=== PATIENT | male | born 1955 | race Two or more races ===

== ENCOUNTER 2023-07-29 06:53 | Inpatient (IN) | payer MEDICARE, MEDICAID ==
[~2023-07-29] VITALS: Ht 177.8 cm; Wt 113.5 kg
[2023-07-29] MEDS ORDERED: SODIUM CHLORIDE 0.9% 500 ML IV ONE (07:30)
[2023-07-29] MEDS ORDERED: MORPHINE SULFATE INJ 2 MG/ml SYRG IM ONE (07:30)
[2023-07-29] MEDS ORDERED: PROCHLORPERAZINE EDISYLATE 5 MG/ML 2ML VIAL IM ONE (07:30)
[2023-07-29 08:01] LABS: INR 1.06 (0.9-1.15); Partial Thromboplastin Time 27.5 SEC (24.5-34.5); Prothrombin Time 11.1 sec (9.3-11.8)
[2023-07-29 08:18] LABS: Basophils # (auto) 0 10 ^3/uL (0-0.2); Basophils % (auto) 0.5 % (0.0-2.0); Eosinophils # (auto) 0.1 10 ^3/uL (0-0.8); Eosinophils % (auto) 0.7 % (0.0-7.0); Hematocrit 43.6 % (41.0-53.0); Hemoglobin 14.9 g/dL (13.5-17.5); Lymphocytes # (auto) 0.7 10 ^3/uL (0.4-5.4); Mean Corpuscular Hemoglobin 28.2 pg (28.0-32.0); Mean Corpuscular Hgb Conc. 34.2 g/dL (32.0-36.0); Mean Corpuscular Volume 82.5 fL (80.0-100.0); Monocytes # (auto) 0.4 10 ^3/uL (0-1.3); Monocytes % (auto) 4.4 % (0.0-12.0); Neutrophils % (auto) 85.4 % (37.0-80.0); Nucleated Red Blood Cells % 0.1 %; Red Blood Cells 5.29 10^6/uL (4.5-5.90); Red Cell Distribution Width 14.2 % (11.8-14.3); White Blood Cell 8.2 10^3/uL (4.4-10.8)
[2023-07-29 09:51] VITALS: PULSE 68; RESP 18; O2SAT 97
[2023-07-29] MEDS ORDERED: MORPHINE SULFATE 4 MG/ML SYR/VIAL IV ONE (10:00)
[2023-07-29] MEDS ORDERED: HALOPERIDOL LACTATE 5 MG/ML INJ VIAL IM ONE (10:00)
[2023-07-29] MEDS ORDERED: diphenhdrAMINE HCL 50 MG/1 ML VL IV ONE (10:45)
[2023-07-29 10:48] LABS: Alanine Aminotransferase 18 U/L (7-40); Albumin 4.4 g/dL (3.2-4.8); Alkaline Phosphatase 96 U/L (46-116); Anion Gap 12 (5-15); Aspartate Aminotransferase 17 U/L (13-40); BUN/Creatinine Ratio 15.5 (10.0-20.0); Blood Urea Nitrogen 13 mg/dL (9-23); Calcium 9.2 mg/dL (8.7-10.4); Carbon Dioxide 24 mmol/L (20-30); Chloride 107 mmol/L (98-107); Glucose 145 mg/dL (74-106); Lipase 33 U/L (12-53); Potassium 3.5 mmol/L (3.5-5.1); Sodium 143 mmol/L (136-145)
[2023-07-29 10:49] LABS: Bilirubin, Total 0.8 mg/dL (0.2-1.0); Total Protein 6.6 g/dL (5.7-8.2)
[2023-07-29] MEDS ORDERED: SODIUM CHLORIDE 0.9% 1,000 ML IV ONE (11:15)
[2023-07-29] MEDS ORDERED: PANTOPRAZOLE 40 MG/10 ML VIAL INJ IV ONE (12:00)
[2023-07-29 12:25] LABS: Urine Bacteria NONE SEEN /hpf (None Seen); Urine Blood Negative /uL (Negative); Urine Clarity Clear (Clear); Urine Color Yellow (Yellow); Urine Mucus FEW (None Seen); Urine Protein, UAD TRACE (Negative); Urine Specific Gravity 1.018 (1.001-1.035); Urine Urobilinogen Normal (Negative); Urine WBC 1 /hpf (0 - 3); Urine pH 6.5 (5.0-8.0)
[2023-07-29] MEDS: SODIUM CHLORIDE 0.9% 1,000 ML IV SCH (12:38)
[2023-07-29] MEDS: hydrALAZINE HCL 20 MG/ML VL IV PRN (13:43)
[2023-07-29 14:00] LABS: Triglycerides 105 mg/dL (< 150)
[2023-07-29 14:01] LABS: LDL Cholesterol 115 mg/dL (< 100)
[2023-07-29 14:02] LABS: Cholesterol 164 mg/dL (< 200); HDL Cholesterol 36 mg/dL (40-59)
[2023-07-29 14:15] VITALS: BP 140/90; PULSE 97; RESP 17; TEMP 98
[2023-07-29] MEDS ORDERED: LOSA50TA46 PO (16:16)
[2023-07-29] MEDS ORDERED: CHOL20007 PO (16:17)
[2023-07-29] MEDS ORDERED: TAMS-35 PO (16:17)
[2023-07-29] MEDS ORDERED: OMEP20TA85 PO (16:17)
[2023-07-29] MEDS ORDERED: MULT-1018 PO (16:17)
[2023-07-29] MEDS ORDERED: SUCR1TAB22 PO (16:17)
[2023-07-29] MEDS ORDERED: FERR-7 PO (16:17)
[2023-07-29] MEDS ORDERED: SIMV20TA20 PO (16:17)
[2023-07-29] MEDS ORDERED: HYDR-4296 PO (16:17)
[2023-07-29] MEDS ORDERED: GASTROGRAFIN 120 ML SOL ONE (16:23)
[2023-07-29 17:00] VITALS: BP 126/93; PULSE 112; RESP 18; TEMP 98; O2SAT 95
[2023-07-29] MEDS ORDERED: LABETALOL HCL 5 MG/ML 4ML SYRINGE IV PRN (19:15)
[2023-07-29 20:00] VITALS: PULSE 100; RESP 18; O2SAT 96
[2023-07-29 22:00] VITALS: BP 140/88; PULSE 116; RESP 20; TEMP 97.9; O2SAT 96
[2023-07-30] VITALS (8 sets, daily range): BP systolic 138–158; BP diastolic 84–102; PULSE 80–84; RESP 16–18; TEMP 98–98.9; O2SAT 92–96
[2023-07-30 06:20] LABS: Basophils # (auto) 0 10 ^3/uL (0-0.2); Basophils % (auto) 0.2 % (0.0-2.0); Eosinophils # (auto) 0 10 ^3/uL (0-0.8); Eosinophils % (auto) 0.1 % (0.0-7.0); Hematocrit 47.7 % (41.0-53.0); Hemoglobin 16.1 g/dL (13.5-17.5); Lymphocytes # (auto) 0.7 10 ^3/uL (0.4-5.4); Lymphocytes % (auto) 8.5 % (10.0-50.0); Mean Corpuscular Hemoglobin 28.4 pg (28.0-32.0); Mean Corpuscular Hgb Conc. 33.7 g/dL (32.0-36.0); Mean Corpuscular Volume 84.1 fL (80.0-100.0); Monocytes # (auto) 0.6 10 ^3/uL (0-1.3); Monocytes % (auto) 7.9 % (0.0-12.0); Neutrophils # (auto) 6.6 10 ^3/uL (1.6-8.6); Neutrophils % (auto) 83.3 % (37.0-80.0); Nucleated Red Blood Cells % 0.1 %; Red Blood Cells 5.67 10^6/uL (4.5-5.90); Red Cell Distribution Width 14.5 % (11.8-14.3); White Blood Cell 7.9 10^3/uL (4.4-10.8)
[2023-07-30] MEDS: SODIUM CHLORIDE 0.9% 1,000 ML IV SCH ×2 (06:32→14:40)
[2023-07-30 06:38] LABS: Alanine Aminotransferase 11 U/L (7-40); Alkaline Phosphatase 86 U/L (46-116); Aspartate Aminotransferase 13 U/L (13-40); BUN/Creatinine Ratio 20.8 (10.0-20.0); Blood Urea Nitrogen 16 mg/dL (9-23); Calcium 8.1 mg/dL (8.7-10.4); Carbon Dioxide 28 mmol/L (20-30); Glucose 126 mg/dL (74-106)
[2023-07-30 06:39] LABS: Albumin 3.6 g/dL (3.2-4.8); Bilirubin, Total 0.7 mg/dL (0.2-1.0); Total Protein 5.5 g/dL (5.7-8.2)
[2023-07-30 06:44] LABS: Anion Gap 6 (5-15); Chloride 109 mmol/L (98-107); Potassium 3.2 mmol/L (3.5-5.1); Sodium 143 mmol/L (136-145)
[2023-07-30] MEDS: PANTOPRAZOLE 40 MG/10 ML VIAL INJ IV SCH (08:43)
[2023-07-30] MEDS: cefTRIAXone 1GM/50ML D5W 50 ML IV SCH (08:43)
[2023-07-30] MEDS: ENOXAPARIN SOD 40 MG/0.4 ML SYRINGE SC SCH (08:43)
[2023-07-30] MEDS: SUCRALFATE 1 GM/10 ML ORAL SUSP PO SCH ×2 (18:10→21:20)
[2023-07-30] MEDS: ACETAMINOPHEN 325 MG TAB PO PRN (21:24)
[2023-07-31] VITALS (7 sets, daily range): BP systolic 134–148; BP diastolic 66–98; PULSE 68–88; RESP 17–20; TEMP 97.8–98.5; O2SAT 91–95
[2023-07-31] MEDS: SODIUM CHLORIDE 0.9% 1,000 ML IV SCH (04:51)
[2023-07-31] MEDS: SUCRALFATE 1 GM/10 ML ORAL SUSP PO SCH ×4 (06:54→23:25)
[2023-07-31] MEDS: cefTRIAXone 1GM/50ML D5W 50 ML IV SCH (09:27)
[2023-07-31] MEDS: ENOXAPARIN SOD 40 MG/0.4 ML SYRINGE SC SCH (09:28)
[2023-07-31] MEDS: PANTOPRAZOLE 40 MG/10 ML VIAL INJ IV SCH (09:28)
[2023-07-31] MEDS ORDERED: MAGNESIUM OXIDE 400 MG TAB PO ONE (12:00)
[2023-07-31] MEDS ORDERED: POTASSIUM CHL 20 Meq TABLET PO ONE (12:00)
[2023-07-31] MEDS: ONDANSETRON ODT 4 MG TAB PO PRN ×3 (12:33→21:30)
[2023-07-31] MEDS ORDERED: SUCR1TAB PO (17:31)
[2023-07-31] MEDS ORDERED: SIMV20TA20 PO (17:31)
[2023-07-31] MEDS ORDERED: TAMS0.4C36 PO (17:31)
[2023-07-31] MEDS ORDERED: LOSA50TA46 PO (17:31)
[2023-07-31] MEDS ORDERED: HYDR-4296 PO (17:31)
[2023-07-31] MEDS ORDERED: FERR325T24 PO (17:31)
[2023-07-31] MEDS ORDERED: MULT-1018 PO (17:31)
[2023-07-31] MEDS ORDERED: CHOL20007 PO (17:31)
[2023-07-31] MEDS ORDERED: ESOM40CA39 PO (17:31)
[2023-07-31] MEDS: ACETAMINOPHEN 325 MG TAB PO PRN (21:34)
[2023-08-01] VITALS (8 sets, daily range): BP systolic 123–159; BP diastolic 57–91; PULSE 59–91; RESP 16–19; TEMP 97.9–98.1; O2SAT 92–97
[2023-08-01] MEDS: ONDANSETRON ODT 4 MG TAB PO PRN ×3 (01:56→17:49)
[2023-08-01] MEDS: hydrALAZINE HCL 20 MG/ML VL IV PRN (05:16)
[2023-08-01 06:02] LABS: Basophils # (auto) 0 10 ^3/uL (0-0.2); Basophils % (auto) 0.3 % (0.0-2.0); Eosinophils # (auto) 0 10 ^3/uL (0-0.8); Eosinophils % (auto) 0.5 % (0.0-7.0); Hematocrit 39.1 % (41.0-53.0); Hemoglobin 13.2 g/dL (13.5-17.5); Lymphocytes # (auto) 0.9 10 ^3/uL (0.4-5.4); Lymphocytes % (auto) 14.1 % (10.0-50.0); Mean Corpuscular Hemoglobin 28.2 pg (28.0-32.0); Mean Corpuscular Hgb Conc. 33.9 g/dL (32.0-36.0); Monocytes # (auto) 0.4 10 ^3/uL (0-1.3); Monocytes % (auto) 6.8 % (0.0-12.0); Neutrophils % (auto) 78.3 % (37.0-80.0); Red Cell Distribution Width 14.2 % (11.8-14.3); White Blood Cell 6.4 10^3/uL (4.4-10.8)
[2023-08-01 06:18] LABS: Chloride 105 mmol/L (98-107); Potassium 3.5 mmol/L (3.5-5.1); Sodium 139 mmol/L (136-145)
[2023-08-01 06:19] LABS: Anion Gap 4 (5-15); Carbon Dioxide 30 mmol/L (20-30)
[2023-08-01 06:20] LABS: Calcium 8.2 mg/dL (8.7-10.4)
[2023-08-01 06:24] LABS: Glucose 112 mg/dL (74-106)
[2023-08-01 06:25] LABS: BUN/Creatinine Ratio 15.1 (10.0-20.0); Blood Urea Nitrogen 8 mg/dL (9-23)
[2023-08-01] MEDS: SUCRALFATE 1 GM/10 ML ORAL SUSP PO SCH ×4 (06:32→22:17)
[2023-08-01] MEDS: ACETAMINOPHEN 325 MG TAB PO PRN (07:42)
[2023-08-01 08:07] LABS: PSA Free 0.31 ng/mL; Prostate Specific Antigen 1.2 ng/mL (0.0-4.0)
[2023-08-01] MEDS: ENOXAPARIN SOD 40 MG/0.4 ML SYRINGE SC SCH (08:43)
[2023-08-01] MEDS: PANTOPRAZOLE 40 MG/10 ML VIAL INJ IV SCH (08:43)
[2023-08-01] MEDS: cefTRIAXone 1GM/50ML D5W 50 ML IV SCH (08:43)
[2023-08-01] MEDS ORDERED: LOSARTAN POTASSIUM 25 MG TAB PO ONE (13:45)
[2023-08-02] VITALS (8 sets, daily range): BP systolic 137–156; BP diastolic 71–90; PULSE 64–89; RESP 17–19; TEMP 97.8–98.5; O2SAT 90–94
[2023-08-02] MEDS: SUCRALFATE 1 GM/10 ML ORAL SUSP PO SCH ×4 (06:31→21:52)
[2023-08-02 07:00] LABS: Chloride 107 mmol/L (98-107); Potassium 3.2 mmol/L (3.5-5.1); Sodium 142 mmol/L (136-145)
[2023-08-02 07:01] LABS: Anion Gap 6 (5-15); Calcium 8.1 mg/dL (8.7-10.4); Carbon Dioxide 29 mmol/L (20-30)
[2023-08-02 07:03] LABS: Basophils # (auto) 0 10 ^3/uL (0-0.2); Basophils % (auto) 0.4 % (0.0-2.0); Eosinophils # (auto) 0.1 10 ^3/uL (0-0.8); Eosinophils % (auto) 1.5 % (0.0-7.0); Hematocrit 37.2 % (41.0-53.0); Hemoglobin 12.9 g/dL (13.5-17.5); Lymphocytes # (auto) 1.1 10 ^3/uL (0.4-5.4); Lymphocytes % (auto) 17.8 % (10.0-50.0); Mean Corpuscular Hemoglobin 28.7 pg (28.0-32.0); Mean Corpuscular Hgb Conc. 34.8 g/dL (32.0-36.0); Mean Corpuscular Volume 82.3 fL (80.0-100.0); Monocytes # (auto) 0.4 10 ^3/uL (0-1.3); Monocytes % (auto) 6.4 % (0.0-12.0); Neutrophils # (auto) 4.7 10 ^3/uL (1.6-8.6); Neutrophils % (auto) 73.9 % (37.0-80.0); Nucleated Red Blood Cells % 0.2 %; Red Blood Cells 4.52 10^6/uL (4.5-5.90); Red Cell Distribution Width 14.2 % (11.8-14.3); White Blood Cell 6.3 10^3/uL (4.4-10.8)
[2023-08-02 07:06] LABS: Blood Urea Nitrogen 6 mg/dL (9-23); Glucose 94 mg/dL (74-106); Magnesium 2.1 mg/dL (1.6-2.6)
[2023-08-02] MEDS ORDERED: LIDOCAINE VISCOUS 2% 15ML UD ONE (08:19)
[2023-08-02] MEDS ORDERED: SODIUM CHLORIDE LOCK 10 ML ONE (08:19)
[2023-08-02] MEDS ORDERED: POTASSIUM CHL 20 Meq TABLET PO ONE (09:30)
[2023-08-02] MEDS: PANTOPRAZOLE 40 MG/10 ML VIAL INJ IV SCH (10:40)
[2023-08-02] MEDS: cefTRIAXone 1GM/50ML D5W 50 ML IV SCH (10:41)
[2023-08-02] MEDS: LOSARTAN POTASSIUM 25 MG TAB PO SCH (10:41)
[2023-08-02] MEDS: ENOXAPARIN SOD 40 MG/0.4 ML SYRINGE SC SCH (10:50)
[2023-08-02] MEDS ORDERED: POTASSIUM CHLORIDE 40 MEQ, LIDOCAINE 1% (LOCAL ANESTH.) 4 ML in SODIUM CHL 0.9% 250 ML IV ONE (12:15)
[2023-08-02] MEDS: diphenhdrAMINE HCL 50 MG/1 ML VL ONE ×2 (14:21→14:22)
[2023-08-02] MEDS: fentaNYL CITRATE 100 MCG/2 ML VL ONE ×3 (14:21→14:28)
[2023-08-02] MEDS: MIDAZOLAM HCL 5 MG/ML-1ML VIAL ONE ×2 (14:21→14:25)
[2023-08-02] MEDS ORDERED: SUCRALFATE 1 GM TAB PO SCH (17:00)
[2023-08-02] MEDS: PANTOPRAZOLE 40 MG TAB PO SCH (21:52)
[2023-08-03 05:00] VITALS: BP 130/61; PULSE 71; RESP 19; TEMP 98; O2SAT 90
[2023-08-03] MEDS: SUCRALFATE 1 GM/10 ML ORAL SUSP PO SCH ×2 (06:41→12:02)
[2023-08-03 09:00] VITALS: BP 155/91; PULSE 90; RESP 14; TEMP 97.7; O2SAT 92
[2023-08-03] MEDS: cefTRIAXone 1GM/50ML D5W 50 ML IV SCH (09:46)
[2023-08-03] MEDS: LOSARTAN POTASSIUM 25 MG TAB PO SCH (09:46)
[2023-08-03] MEDS: ENOXAPARIN SOD 40 MG/0.4 ML SYRINGE SC SCH (09:46)
[2023-08-03] MEDS: PANTOPRAZOLE 40 MG TAB PO SCH (09:47)
[2023-08-03] MEDS: PANTOPRAZOLE 40 MG/10 ML VIAL INJ IV SCH (09:47)
[2023-08-03] MEDS ORDERED: PANT40TA2 PO (11:09)
[2023-08-03] MEDS ORDERED: SUCR1TAB PO (11:09)
[2023-08-03 11:45] VITALS: BP 155/91
== END 2023-08-03 12:40 | disposition home or self-care (01) | DRG 389 ==
LOC: EDBD 06:53 → ER 06:53 → OVERFLOW 11:54 → CENTRAL 13:57
PROVIDERS: ADMIT Nurse Practitioner Family; ATTEND Internal Medicine
PROC: 0D9670Z Drainage of Stomach with Drainage Device, Via Natural or Artificial Opening (ICD-10-PCS; principal; 2023-07-29)
PROC: 0DB98ZX Excision of Duodenum, Via Natural or Artificial Opening Endoscopic, Diagnostic (ICD-10-PCS; 2023-08-02)
PROC: 0DB68ZX Excision of Stomach, Via Natural or Artificial Opening Endoscopic, Diagnostic (ICD-10-PCS; 2023-08-02)
PROC: 0DB48ZX Excision of Esophagogastric Junction, Via Natural or Artificial Opening Endoscopic, Diagnostic (ICD-10-PCS; 2023-08-02)
DX: K56.600 Partial intestinal obstruction, unspecified as to cause (principal); C85.90 Non-Hodgkin lymphoma, unspecified, unspecified site; R18.8 Other ascites; I50.32 Chronic diastolic (congestive) heart failure; I11.0 Hypertensive heart disease with heart failure; E66.01 Morbid (severe) obesity due to excess calories; E78.5 Hyperlipidemia, unspecified; K25.9 Gastric ulcer, unspecified as acute or chronic, without hemorrhage or perforation; K29.70 Gastritis, unspecified, without bleeding; K29.80 Duodenitis without bleeding; K31.3 Pylorospasm, not elsewhere classified; N30.90 Cystitis, unspecified without hematuria; K44.9 Diaphragmatic hernia without obstruction or gangrene; N40.0 Benign prostatic hyperplasia without lower urinary tract symptoms; K21.9 Gastro-esophageal reflux disease without esophagitis; H54.8 Legal blindness, as defined in USA; Z87.442 Personal history of urinary calculi; Z87.440 Personal history of urinary (tract) infections; Z92.21 Personal history of antineoplastic chemotherapy; Z68.38 Body mass index [BMI] 38.0-38.9, adult; Z83.3 Family history of diabetes mellitus; Z79.899 Other long term (current) drug therapy
CPT/HCPCS: 36415; 43239; 71045; 74018; 74176; 74250; 76705; 80048; 80053; 80061; 81001; 83036; 83690; 83735; 84154; 84443; 84484; 85025; 85610; 85730; 87086; 87088; 87186; 93005; 96372; 96374; 96375; C9113; G0378; J0696; J2001; J2250; Q0162

== ENCOUNTER 2023-08-16 11:07 | Inpatient (IN) | payer MEDICARE, MEDICAID ==
[~2023-08-16] VITALS: Ht 175.3 cm; Wt 108.5 kg
[~2023-08-16 11:07] MED LIST: CHOL20007 PO; ESOM40CA39 PO; FERR325T24 PO; HYDR-4296 PO; LOSA50TA46 PO; MULT-1018 PO; PANT40TA2 PO; SIMV20TA20 PO; SUCR1TAB PO; TAMS0.4C36 PO
[2023-08-16] MEDS ORDERED: ACCU-CHEK COMFORT CURVE STRIP VI ONE (11:30)
[2023-08-16 11:43] LABS: Basophils # (auto) 0 10 ^3/uL (0-0.2); Basophils % (auto) 0.4 % (0.0-2.0); Eosinophils # (auto) 0 10 ^3/uL (0-0.8); Eosinophils % (auto) 0.5 % (0.0-7.0); Hematocrit 38.8 % (41.0-53.0); Hemoglobin 12.7 g/dL (13.5-17.5); Lymphocytes # (auto) 0.6 10 ^3/uL (0.4-5.4); Lymphocytes % (auto) 13.7 % (10.0-50.0); Mean Corpuscular Hemoglobin 27.2 pg (28.0-32.0); Mean Corpuscular Hgb Conc. 32.8 g/dL (32.0-36.0); Monocytes # (auto) 0.3 10 ^3/uL (0-1.3); Monocytes % (auto) 6.3 % (0.0-12.0); Neutrophils # (auto) 3.5 10 ^3/uL (1.6-8.6); Neutrophils % (auto) 79.1 % (37.0-80.0); Red Blood Cells 4.68 10^6/uL (4.5-5.90); Red Cell Distribution Width 14.2 % (11.8-14.3); White Blood Cell 4.4 10^3/uL (4.4-10.8)
[2023-08-16 12:01] LABS: Alanine Aminotransferase 13 U/L (7-40); Albumin 3.6 g/dL (3.2-4.8); Alkaline Phosphatase 77 U/L (46-116); Anion Gap 4 (5-15); Aspartate Aminotransferase 20 U/L (13-40); Blood Urea Nitrogen 7 mg/dL (9-23); Calcium 7.8 mg/dL (8.7-10.4); Carbon Dioxide 28 mmol/L (20-30); Chloride 109 mmol/L (98-107); Glucose 110 mg/dL (74-106); Potassium 3.4 mmol/L (3.5-5.1); Sodium 141 mmol/L (136-145)
[2023-08-16 12:02] LABS: Bilirubin, Total 0.4 mg/dL (0.2-1.0); Total Protein 5.3 g/dL (5.7-8.2)
[2023-08-16 13:10] LABS: Urine Bacteria NONE SEEN /hpf (None Seen); Urine Blood Negative /uL (Negative); Urine Clarity Clear (Clear); Urine Color Yellow (Yellow); Urine Mucus FEW (None Seen); Urine Protein, UAD 1+ (Negative); Urine Urobilinogen Normal (Negative); Urine WBC 2 /hpf (0 - 3); Urine pH 6.5 (5.0-8.0)
[2023-08-16] MEDS ORDERED: SODIUM CHLORIDE 0.9% 1,000 ML IV ONE (19:15)
[2023-08-16] MEDS ORDERED: NITROGLYCERIN 0.4 MG SL TAB SL PRN (19:15)
[2023-08-16] MEDS ORDERED: MORPHINE SULFATE INJ 2 MG/ml SYRG IV PRN (19:15)
[2023-08-16] MEDS ORDERED: POTASSIUM EFFERVESENT TAB 25 MEQ PO ONE (19:45)
[2023-08-16] MEDS ORDERED: HYDROcodone-ACET 7.5/325MG TAB PO PRN (22:30)
[2023-08-17] VITALS (8 sets, daily range): BP systolic 114–136; BP diastolic 60–78; PULSE 55–79; RESP 16–20; TEMP 97.8–98.3; O2SAT 92–99
[2023-08-17] MEDS: TAMSULOSIN HYDROCHLORIDE 0.4 MG CAP PO SCH ×2 (01:47→21:24)
[2023-08-17] MEDS: LOSARTAN POTASSIUM 50 MG TAB PO SCH ×3 (01:48→21:36)
[2023-08-17] MEDS: hydrALAZINE HCL 25 MG TAB PO SCH ×3 (01:49→21:36)
[2023-08-17] MEDS: PANTOPRAZOLE 40 MG TAB PO SCH ×3 (01:49→21:24)
[2023-08-17 03:22] LABS: Rapid Influenza A Negative (Negative); Rapid Influenza B Negative (Negative)
[2023-08-17] MEDS ORDERED: POTASSIUM EFFERVESENT TAB 25 MEQ PO ONE (08:15)
[2023-08-17] MEDS: MULTIPLE VITAMIN TAB PO SCH (09:51)
[2023-08-17] MEDS: FERROUS SULFATE 325mg EC TAB PO SCH (09:52)
[2023-08-17 15:59] LABS: COVID19 ANTIGEN SOFIA FIA NEGATIVE (NEGATIVE)
[2023-08-18 05:57] LABS: Basophils # (auto) 0 10 ^3/uL (0-0.2); Basophils % (auto) 0.6 % (0.0-2.0); Eosinophils # (auto) 0.1 10 ^3/uL (0-0.8); Eosinophils % (auto) 2.4 % (0.0-7.0); Hematocrit 37.7 % (41.0-53.0); Hemoglobin 12.8 g/dL (13.5-17.5); Lymphocytes % (auto) 40.5 % (10.0-50.0); Mean Corpuscular Hemoglobin 27.6 pg (28.0-32.0); Mean Corpuscular Volume 81.1 fL (80.0-100.0); Monocytes # (auto) 0.2 10 ^3/uL (0-1.3); Neutrophils # (auto) 1.2 10 ^3/uL (1.6-8.6); Neutrophils % (auto) 48.5 % (37.0-80.0); Nucleated Red Blood Cells % 0.3 %; Red Blood Cells 4.65 10^6/uL (4.5-5.90); Red Cell Distribution Width 14.1 % (11.8-14.3); White Blood Cell 2.4 10^3/uL (4.4-10.8)
[2023-08-18 06:00] VITALS: BP 130/85; PULSE 63; RESP 18; TEMP 98.3; O2SAT 98
[2023-08-18 06:02] LABS: Chloride 107 mmol/L (98-107); Potassium 3.4 mmol/L (3.5-5.1); Sodium 142 mmol/L (136-145)
[2023-08-18 06:03] LABS: Anion Gap 6 (5-15); Calcium 8.5 mg/dL (8.7-10.4); Carbon Dioxide 29 mmol/L (20-30)
[2023-08-18 06:08] LABS: BUN/Creatinine Ratio 15.9 (10.0-20.0); Blood Urea Nitrogen 11 mg/dL (9-23); Glucose 93 mg/dL (74-106)
[2023-08-18 06:13] LABS: % Iron Saturation 18.9 % (20-55)
[2023-08-18 07:45] VITALS: PULSE 62; RESP 16
[2023-08-18 08:00] VITALS: PULSE 61
[2023-08-18] MEDS: MULTIPLE VITAMIN TAB PO SCH (09:37)
[2023-08-18] MEDS: FERROUS SULFATE 325mg EC TAB PO SCH (09:37)
[2023-08-18] MEDS: LOSARTAN POTASSIUM 50 MG TAB PO SCH (09:37)
[2023-08-18] MEDS: PANTOPRAZOLE 40 MG TAB PO SCH (09:38)
[2023-08-18] MEDS: hydrALAZINE HCL 25 MG TAB PO SCH (09:38)
[2023-08-18 09:49] VITALS: BP 120/65; PULSE 59; RESP 17; TEMP 97.9; O2SAT 90
[2023-08-18 10:01] VITALS: BP 120/65; PULSE 59; RESP 17; TEMP 97.9; O2SAT 90
== END 2023-08-18 11:44 | disposition home or self-care (01) | DRG 312 ==
LOC: EDBD 11:07 → ER 11:07 → EDSEX 11:07 → TELE 19:16 → TELE-WESTW 08-17 03:52
PROVIDERS: ADMIT Internal Medicine; ATTEND Internal Medicine
DX: R55 Syncope and collapse (principal); E86.0 Dehydration; D50.9 Iron deficiency anemia, unspecified; E66.9 Obesity, unspecified; E87.6 Hypokalemia; Z20.822 Contact with and (suspected) exposure to COVID-19; I11.0 Hypertensive heart disease with heart failure; H54.8 Legal blindness, as defined in USA; I50.9 Heart failure, unspecified; Z68.35 Body mass index [BMI] 35.0-35.9, adult; Z83.3 Family history of diabetes mellitus; Z85.71 Personal history of Hodgkin lymphoma
CPT/HCPCS: 36415; 70450; 71045; 80048; 80053; 81001; 83540; 83550; 84443; 85025; 87426; 87804; 93005; 93306; 93886; G0378